=== PATIENT | male | born 1965 | race Hispanic/Latino ===

== ENCOUNTER 2018-12-10 10:40 | Day surgery (SDC) | payer OTHER ==
[2018-12-10] MEDS ORDERED: CEFAZOLIN/SWI 1gm 1 GM/10 ML SYR ONE (11:34)
[2018-12-10] MEDS ORDERED: Ringers Lactate 1,000 ML IV ONE ×2 (11:34→14:45)
[2018-12-10] MEDS ORDERED: PROPOFOL 200 MG/20 ML VIAL IV ONE (11:59)
[2018-12-10] MEDS ORDERED: MIDAZOLAM HCL 2 MG/2 ML INJ ONE (11:59)
[2018-12-10] MEDS ORDERED: FENTANYL CITR 100 MCG/2 ML ONE ×2 (11:59→12:45)
[2018-12-10] MEDS ORDERED: DEXAMETHASONE 10 MG/ML VIAL ONE (12:00)
[2018-12-10] MEDS ORDERED: LIDOCAINE 2% MPF 5 ML VIAL ONE (12:00)
[2018-12-10] MEDS ORDERED: ROCURONIUM 50 MG/5 ML VIAL IV ONE (12:01)
--- NOTE | 2018-12-10 12:21 | P.HP ---
Date of Service: 12/10/18 PC: This 53-year-old male presents for urgent repair of an incarcerated umbilical hernia. HPC: Patient has had an umbilical hernia for the last year so. Usually it bulges out, but the CT to put back in. Since Monday it has been stuck, causing increasing pain and discomfort, now has some redness around it. It is exquisitely tender. Normal bowel movements. PMH: Gout PSHx: Negative colonoscopy, fracture of hip 2 years ago from trauma SOC: No known allergies SYS REVIEW: No cough, wheeze, shortness of breath. No chest pain or palpitations. No urinary complaints O/E awake alert vital signs are stable HEENT: Within normal limit Chest: Air entry equal bilaterally ABD: At the umbilicus has a 2.5 cm mass. Painful to touch. Surrounding redness on the skin. LOCO: Intact DATA: Not available IMPRESSION: Incarcerated umbilical hernia PLAN: I will take him to the operating room for laparoscopic reduction repair of this incarcerated umbilical hernia. The risks of this procedure have been discussed. The possibility of bleeding, infection, injury to bowel blood vessels and surrounding structures were explained. The possible complications from mesh including recurrence have been outlined. He understands and wants us to proceed.
[2018-12-10] MEDS ORDERED: HYDRALAZINE HCL 20 MG/ML VIAL ONE (12:49)
[2018-12-10] MEDS ORDERED: GLYCOPYRROLATE 0.2 MG/ML SYR ONE (13:26)
[2018-12-10] MEDS ORDERED: KETOROLAC 30 MG/ML INJ ONE (13:27)
[2018-12-10] MEDS ORDERED: NEOSTIGMINE 1 MG/ML -10 ML VIAL ONE (13:27)
[2018-12-10] MEDS ORDERED: MORPHINE 10 MG/ML VIAL ONE (13:31)
[2018-12-10] MEDS: HYDROMORPHONE HCL 1 MG/ML INJ ONE ×2 (13:50→14:09)
--- NOTE | 2018-12-10 13:53 | P.OP ---
Preoperative diagnosis: Incarcerated umbilical hernia Postoperative diagnosis: Incarcerated umbilical hernia Primary procedure: Laparoscopic reduction and repair of incarcerated umbilical hernia Anesthesia: General Estimated blood loss: Less than 10 cc Specimen: Umbilical sac hand contents Operative Technique: The patient brought the operating room and placed supine on the table the induction of adequate general endotracheal anesthesia, the area of the abdomen was prepped with a DuraPrep solution after the insertion of a Pandey catheter, and he was draped in usual aseptic manner. Attention was turned towards the left upper quadrant. A skin incision was made. This brought down through the skin and subcutaneous tissue. The Visiport was used to enter the peritoneal cavity and created pneumoperitoneum to approximately 12 mm of mercury. Under direct vision a 5 mm trocar was placed in the lower left quadrant. We were able to visualize the anterior abdominal wall. We could see that there was a piece of fat extending through the umbilical defect. This turned out to be obtaining a from the sigmoid colon. This was disimpacted from the umbilical hernia. It was congested but viable. The hernia sac was now inverted here into the peritoneal cavity. The resigned and peritoneum and the contents were resected using a scissors and electro cautery. A piece of mesh approximately a 6 cm in diameter was placed into the peritoneal cavity. It was then tacked to the anterior abdominal wall. Good coverage of the defect having been obtained, the abdomen is inspected to ensure adequate hemostasis. No other intra-abdominal pathology was noted. 10 mm trocar site was now approximated using the Endo Close an absorbable suture. The anterior abdominal wall was blocked with 0.25% Marcaine. At this point the pneumoperitoneum was collapsed, the trocars removed, and the suture tied. Raisa were then applied to the skin. At the end of the procedure he was stable when sent to the recovery room. Needle sponge instrument count were correct. No drains were placed.
== END 2018-12-10 15:40 | disposition home or self-care (01) ==
LOC: OR 10:40
PROVIDERS: ATTEND Surgery
PROC: 0WUF4JZ Supplement Abdominal Wall with Synthetic Substitute, Percutaneous Endoscopic Approach (ICD-10-PCS; principal; 2018-12-10 12:00)
DX: K42.0 Umbilical hernia with obstruction, without gangrene (principal)
CPT/HCPCS: 88302; C1781; J0360; J0690; J1100; J1170; J2250; J2704; J2710; J3010

== ENCOUNTER 2023-10-30 05:26 | Observation (INO) | payer BC ==
[2023-10-26 12:49] LABS: Absolute Basophils 0.1 K/uL (0-0.5); Absolute Eosinophils 0.2 K/uL (0-0.5); Absolute Lymphocytes (CBC) 3.6 K/uL (0.7-4.9); Absolute Monocytes 0.7 K/uL (0.1-1.3); Absolute Neutrophil 5.9 K/uL (1.8-8.0); Eosinophils % 1.8 % (0-4.4); Hematocrit 41.6 % (39.6-49.0); Hemoglobin 14.6 g/dL (13.6-17.9); Lymphocytes % 34.5 % (15.3-44.8); MCH 33.5 pg (27.0-35.0); MCHC 35.2 g/dL (32.0-36.0); MCV 95.4 fL (80-100); MPV 7.3 fL (7.6-11.3); Monocytes % 6.5 % (3.3-12.3); Neutrophils % 56.2 % (41.7-73.7); Platelets 235 thou/uL (152-406); RBC Red Blood Cell Count 4.36 M/uL (4.33-5.43); Red Cell Distribution Width 13.2 % (12.1-15.2)
[2023-10-26 13:06] LABS: Anion Gap 10.2 mEq/L (5.0-15.0); Potassium 4.2 mEq/L (3.5-5.1)
[2023-10-26 13:27] LABS: Blood Morphology Comment NOT SEEN (NOT SEEN); Differential Total Cells Count 100; Lymphocytes 34 % (15-42); Monocytes 12 % (0-10); Platelet Estimate ADEQ; Segmented Neutrophils 54 % (40-80); Smudge Cells PRESENT
[2023-10-30] MEDS: Ringers Lactate 1,000 ML IV ONE ×3 (05:45→13:55)
[2023-10-30] MEDS ORDERED: SUCCINYLCHOLINE 20 MG/ML (10 ML) IV ONE (06:36)
[2023-10-30] MEDS ORDERED: ROCURONIUM 50 MG/5 ML VIAL IV ONE (06:49)
[2023-10-30] MEDS ORDERED: propofoL 200 MG/20 ML VIAL IV ONE ×2 (06:49→08:44)
[2023-10-30] MEDS ORDERED: FENTANYL CITR 100 MCG/2 ML ONE ×3 (06:49→08:07)
[2023-10-30] MEDS: CEFAZOLIN SODIUM 2 GM/VIAL ONE (07:15)
[2023-10-30] MEDS: VANCOMYCIN 1 GM/VIAL ONE (07:21)
[2023-10-30] MEDS: DEPO-MEDROL 40 MG/ML IM ONE (07:21)
[2023-10-30] MEDS: THROMBIN 5000 UNITS/VIAL TOP ONE (07:21)
[2023-10-30] MEDS: TRANEXAMIC ACID 1,000 MG/10 ML VIAL IV ONE (07:21)
[2023-10-30] MEDS ORDERED: ONDANSETRON 4 MG/2 ML VIAL ONE (08:07)
[2023-10-30] MEDS ORDERED: dexAMETHasone 10 MG/ML VIAL ONE (08:07)
[2023-10-30] MEDS ORDERED: GLYCOPYRROLATE 0.2 MG/ML SYR ONE (08:57)
[2023-10-30] MEDS ORDERED: Mastisol Adhesive Liq ONE (08:59)
[2023-10-30] MEDS ORDERED: KETAMINE HCL IN 0.9 % NACL 50 MG/5 ML SYRINGE IV ONE (09:02)
[2023-10-30] MEDS: HYDROMORPHONE HCL 1 MG/ML INJ ONE ×2 (09:46→10:12)
--- NOTE | 2023-10-30 10:01 | RAD REPORT ---
EXAM DESCRIPTION: RAD - Fluoroscopy <1 Hour - 10/30/2023 9:50 am CLINICAL HISTORY: LUMBAR DECOMPRESSION COMPARISON: No comparisons FINDINGS: Fluoroscopy time: 0.1 minutes
[2023-10-30] MEDS: FENTANYL CITR 100 MCG/2 ML ONE (10:28)
[2023-10-30] MEDS: MEPERIDINE HCL 25 MG/ML SYR ONE (11:47)
[2023-10-30] MEDS: MEPERIDINE HCL 25 MG/ML SYR IM ONE (11:47)
[2023-10-30] MEDS ORDERED: DIPHENHYDRAMINE 25 MG TAB/CAP PO PRN (12:44)
[2023-10-30] MEDS: Ringers Lactate 1,000 ML IV SCH (13:00)
[2023-10-30] MEDS: dexAMETHasone 10 MG/ML VIAL IV SCH (13:00)
[2023-10-30] MEDS: dexAMETHasone 4 MG/ML VIAL ONE (13:00)
--- OUTSIDE RECORDS SUMMARY | 2023-10-30 15:06 | XMS REPORT | Continuity of Care Document ---
Author Name Unknown Address [address] [place] [address] [address] [place] [id number] [facility]connect Address [address] [facility] [address] [place] [address] Care Team Providers Care Ancillary Specialist Name Role Phone FOG_A_Provider Attending Clinician Unavailable FOG_A_Provider Admitting Clinician Unavailable Payers Payer Name Policy Type Policy Number Effective Date Expirati on Date Source [place] [id number] 2020 00:00:00 Encounters Start Date/Time End Date/Time Encounter Type Admission Type Attending Clinicians Care Facility Care Department Encounter ID Source 2023-06-19 00:00:00 2023-06-19 00:00:00 Outpatient FOG[facility]A_Provi jackelin [facility] [id number] [facility] 2023-06-18 00:00:00 2023-06-18 00:00:00 Outpatient FOG_A_Provi jackelin [facility] [id number] [facility] 2023-06-13 00:00:00 2023-06-13 00:00:00 Outpatient FOG[facility]A_Provi jackelin [facility] [id number] [facility] 2023-06-13 00:00:00 2023-06-13 00:00:00 Outpatient FOG[facility]A_Provi jackelin [facility] [id number] [facility]
[2023-10-30 15:33] VITALS: O2SAT 98
[2023-10-30] MEDS: Oxycodone HCl/Acetaminophen 5/325 MG TAB PO PRN (16:29)
[2023-10-30] MEDS: OXYCODONE HCL 5 MG TAB PO PRN (16:30)
[2023-10-30 16:40] VITALS: BMI 33.7
[2023-10-30] MEDS: MORPHINE 4 MG/ML SYR IV PRN (18:09)
--- NOTE | 2023-10-30 21:38 | P.HP ---
Certification for Inpatient Patient admitted to: Observation With expected LOS: <2 Midnights Patient will require the following post-hospital care: Home Health Services Practitioner: I am a practitioner with admitting privileges, knowledge of patient current condition, hospital course, and medical plan of care. Services: Services provided to patient in accordance with Admission requirements found in Title 42 Section 412.3 of the Code of Federal Regulations Patient History Date of Service: 10/30/23 Reason for admission: Back pain postoperatively History of Present Illness: Patient is a 58-year-old gentleman came to the hospital for lumbar decompression of L3/L4 and L4/L5. Patient also had diskectomy of L2-L3. Patient has been dealing with back pain and lumbar stenosis with neurogenic claudication for a while. Patient also has lumbar disc herniation. Patient has been dealing with back issues for quite a while. Patient works with [employer]. patient's job is very physical and he has been having a hard time getting around. patient's major complaint was low back pain. Decision was made to admit the patient to the hospital for further workup. Patient denies any other medical issues except for hypertension. Patient denies diabetes or cardiac disease. At this time, patient will be admitted to the hospital for further evaluation. Allergies No Known Allergies Allergy (Verified 10/30/23 06:15) Home Medications: Amlodipine Besylate 1 tab PO DAILY 10/26/23 Atorvastatin Calcium 1 tab PO DAILY 10/26/23 Losartan/Hydrochlorothiazide [Losartan-Hctz 100-12.5 mg Tab] 1 tab PO DAILY 10/26/23 - Past Medical/Surgical History Diabetic: No -: HTN -: HLD -: hernia removed -: pins in hip - Family History Father Family History: Reviewed- Non-Contributory - Social History Smoking Status: Never smoker Alcohol use: Yes CD- Drugs: No Caffeine use: Yes Place of Residence: Home Review of Systems 10-point ROS is otherwise unremarkable Physical Examination - Vital Signs Temperature: 98.2 F Blood Pressure: 138/74 Pulse: 106 Respirations: 18 Pulse Ox (%): 96 - Physical Exam General: Alert, In no apparent distress, Oriented x3 HEENT: Atraumatic, PERRLA, Mucous membr. moist/pink, EOMI, Sclerae nonicteric Neck: Supple, 2+ carotid pulse no bruit, No LAD, Without JVD or thyroid abnormality Respiratory: Clear to auscultation bilaterally, Normal air movement Cardiovascular: Regular rate/rhythm, Normal S1 S2, No murmurs Gastrointestinal: Normal bowel sounds, Soft and benign, Non-distended, No tenderness Musculoskeletal: No clubbing, No swelling, Tenderness ( Low back pain) Integumentary: No rashes Neurological: Normal speech, Normal tone, Sensation intact, Cranial nerves 3-12 intact, Normal affect, Abnormal gait, Abnormal strength Lymphatics: No axilla or inguinal lymphadenopathy Assessment & Plan - Problems (Diagnosis) (1) Lumbar stenosis with neurogenic claudication Current Visit: Yes Status: Acute (2) Status post lumbar spine surgery for decompression of spinal cord Current Visit: Yes Status: Acute (3) Foraminal stenosis of lumbar region Current Visit: Yes Status: Acute (4) Status post discectomy Current Visit: Yes Status: Acute (5) HTN (hypertension) Current Visit: Yes Status: Acute - Plan Plan: 1. Continue with IV steroids per spine surgeon 2. Continue with physical therapy 3. continue with pain control 4. Strict blood pressure control 5. Gi DVT prophylaxis was Discharge Plan: Home Plan to discharge in: 24 Hours - Advance Directives Does patient have a Living Will: Yes Does patient have a Durable POA for Healthcare: No - Code Status/Comfort Care Code Status Assessed: Yes Code Status: Full Code Critical Care: No Time Spent Managing PTS Care (In Minutes): 45
[2023-10-31] MEDS: METHOCARBAMOL 1,000 MG/10 ML VIAL IV PRN (03:23)
[2023-10-31 06:05] VITALS: BP 130/76; TEMP 97.8
--- NOTE | 2023-10-31 08:20 | P.PN ---
Subjective Date of Service: 10/31/23 Chief Complaint: Back pain postoperatively Subjective: Improving, Other (had a lot of pain with PT last pm, pt supine and states pain is 1/10, no incontinence) <GriffinAlison - Last Filed: 10/31/23 08:21> Date of Service: 10/31/23 <Lourdes Vizcaino - Last Filed: 11/03/23 01:58> Review of Systems 10-point ROS is otherwise unremarkable Musculoskeletal: As per HPI <Alisno Griffin - Last Filed: 10/31/23 08:21> Physical Examination - Vital Signs Temperature: 97.8 F Blood Pressure: 130/76 Pulse: 91 Respirations: 16 Pulse Ox (%): 96 - Physical Exam General: Alert, In no apparent distress, Oriented x3 HEENT: Atraumatic, Normocephalic Neck: 2+ carotid pulse no bruit Respiratory: Clear to auscultation bilaterally, Normal air movement Cardiovascular: No edema, Regular rate/rhythm Capillary refill: <2 Seconds Gastrointestinal: Normal bowel sounds, Soft and benign Musculoskeletal: No clubbing, No swelling Integumentary: No rashes Neurological: Normal tone, Normal affect, Other (gait not tested) Lymphatics: No axilla or inguinal lymphadenopathy External genitalia: Deferred Rectal: Deferred <Alison Griffin - Last Filed: 10/31/23 08:21> Assessment And Plan - Plan Assessment & Plan - Problems (Diagnosis) (1) Lumbar stenosis with neurogenic claudication Current Visit: Yes Status: Acute (2) Status post lumbar spine surgery for decompression of spinal cord Current Visit: Yes Status: Acute (3) Foraminal stenosis of lumbar region Current Visit: Yes Status: Acute (4) Status post discectomy Current Visit: Yes Status: Acute (5) HTN (hypertension) Current Visit: Yes Status: Acute - Plan Plan: 1. Continue with IV steroids per spine surgeon 2. Continue with physical therapy 3. continue with pain control 4. Strict blood pressure control 5. Gi DVT prophylaxis was Discharge Plan: Home Plan to discharge in: 24 Hours - Advance Directives Does patient have a Living Will: Yes Does patient have a Durable POA for Healthcare: No - Code Status/Comfort Care Code Status Assessed: Yes Code Status: Full Code Critical Care: No Discharge Plan: Home Plan to discharge in: 24 Hours <Alison Griffin Luis Alberto - Last Filed: 10/31/23 08:21> - Current Problems (Diagnosis) (1) Lumbar stenosis with neurogenic claudication Status: Acute (2) Status post lumbar spine surgery for decompression of spinal cord Status: Acute (3) Foraminal stenosis of lumbar region Status: Acute (4) Status post discectomy Status: Acute (5) HTN (hypertension) Status: Acute <Lourdes Vizcaino - Last Filed: 11/03/23 01:58> Date of Service: 10/31/23 See discharge summary <Lourdes Vizcaino - Last Filed: 11/03/23 01:58>
[2023-10-31] MEDS ORDERED: SIMETHICONE 125 MG TAB PO PRN (08:22)
--- NOTE | 2023-11-03 02:00 | P.DS ---
Discharge Date: 10/31/23 Disposition: ROUTINE DISCHARGE Discharge Condition: GOOD Reason for Admission: Back pain postoperatively - Problems (1) Lumbar stenosis with neurogenic claudication Status: Acute (2) Status post lumbar spine surgery for decompression of spinal cord Status: Acute (3) Foraminal stenosis of lumbar region Status: Acute (4) Status post discectomy Status: Acute (5) HTN (hypertension) Status: Acute Brief History of Present Illness: Patient is a 58-year-old gentleman came to the hospital for lumbar decompression of L3/L4 and L4/L5. Patient also had diskectomy of L2-L3. Patient has been dealing with back pain and lumbar stenosis with neurogenic claudication for a while. Patient also has lumbar disc herniation. Patient has been dealing with back issues for quite a while. Patient works with [employer]. patient's job is very physical and he has been having a hard time getting around. patient's major complaint was low back pain. Decision was made to admit the patient to the hospital for further workup. Patient denies any other medical issues except for hypertension. Patient denies diabetes or cardiac disease. At this time, patient will be admitted to the hospital for further evaluation. Hospital Course: patient has done well during the postoperative period. Patient is doing well with physical therapy and ambulating but is still having some mild discomfort. At this time, patient is clinically doing well and patient will follow-up with Dr. Pardo after discharge. Continue with pain control and oral steroid tapering dosage. Vital Signs/Physical Exam: Temp Pulse Resp BP Pulse Ox 97.8 F 91 H 16 130/76 96 10/31/23 08:21 10/31/23 08:21 10/31/23 10:39 10/31/23 08:21 10/31/23 10:39 General: Alert, In no apparent distress, Oriented x3 Laboratory Data at Discharge: WBC 10.50 thou/uL (4.3-10.9) 10/26/23 12:39 Hgb 14.6 g/dL (13.6-17.9) 10/26/23 12:39 Hct 41.6 % (39.6-49.0) 10/26/23 12:39 Plt Count 235 thou/uL (152-406) 10/26/23 12:39 Sodium 137 mEq/L (136-145) 10/26/23 12:39 Potassium 4.2 mEq/L (3.5-5.1) 10/26/23 12:39 BUN 20 mg/dL (7-18) H 10/26/23 12:39 Creatinine 1.15 mg/dL (0.70-1.30) 10/26/23 12:39 Glucose 102 mg/dL (74-106) 10/26/23 12:39 Home Medications: Amlodipine Besylate 1 tab PO DAILY 10/26/23 Atorvastatin Calcium 1 tab PO DAILY 10/26/23 Losartan/Hydrochlorothiazide [Losartan-Hctz 100-12.5 mg Tab] 1 tab PO DAILY 10/26/23 Oxycodone HCl/Acetaminophen [Percocet 5/325 Tab*] 1 tab PO Q6HP PRN #30 tab 10/31/23 dexAMETHasone [Dexamethasone] 4 mg PO BID #11 tab 10/31/23 New Medications: dexAMETHasone [Dexamethasone] 4 mg PO BID #11 tab Oxycodone HCl/Acetaminophen [Percocet 5/325 Tab*] 1 tab PO Q6HP PRN #30 tab PRN Reason: Pain scale 1-6 (Mild-Moderate) Physician Discharge Instructions: -DC IV and DC home -Follow-up with PCP in 1 to 2 weeks -Follow-up with Dr. Pardo, spine surgeon in the next 2 weeks -Please call Dr. Vizcaino at [phone] if any questions regarding hospital stay -Please call nursing station at [phone] if any nursing or medication questions -Return to the emergency room if symptoms worsen -follow up in [address] Pardo Diet: Regular Activity: Fall precautions Followup: Kian Pardo MD [OUTSIDE PHYSICIAN] - (Follow up in next 2 weeks. Call for appointment) Janusz Saenz FNP [Primary Care Provider] - 1-2 Weeks Time spent managing pt's care (in minutes): 35
--- NOTE | 2023-11-03 17:58 | EKG ---
Test Date: 2023-10-26 Test Time: 13:43:20 Legal Services Manager: CLEM MEASUREMENT RESULTS: Intervals: Rate: 77 CT: 158 QRSD: 92 QT: 374 QTc: 423 [place]: P: 45 CT: 158 QRS: -65 T: 55 INTERPRETIVE STATEMENTS: Normal sinus rhythm Left axis deviation Abnormal ECG No previous ECG available for comparison Electronically Signed On 11-03-23 17:34:37 CDT by Amilcar Velazquez
== END 2023-10-31 11:32 | disposition home or self-care (01) ==
LOC: OR 05:26 → 4TH 12:21
PROVIDERS: ADMIT Hospitalist; ATTEND Hospitalist
PROC: 01NB0ZZ Release Lumbar Nerve, Open Approach (ICD-10-PCS; principal; 2023-10-30 06:30)
DX: M48.062 Spinal stenosis, lumbar region with neurogenic claudication (principal); M51.26 Other intervertebral disc displacement, lumbar region; I10 Essential (primary) hypertension; E78.00 Pure hypercholesterolemia, unspecified; E66.9 Obesity, unspecified; Z68.33 Body mass index [BMI] 33.0-33.9, adult
CPT/HCPCS: 93005; 85025; 80048; 36415; 76000; 97116; 97163; 97530 ×2; 63047; 63048; G0379; J2704 ×2; J1100 ×4; J3010 ×4; J2175; J1170 ×2; J2405; J2800 ×2; G0378 ×3; J7120 ×4; J1030